=== PATIENT | male | born 1970 | race Caucasian/White ===

== ENCOUNTER → 2016-09-17 | Outpatient (CLI) | payer SELFPAY ==
[~2016-09-17] MED LIST: CIPRO250 MG PO; CYCLOBENZAPRINE10 MG PO; DUONEB 3 MG/3 ML3 M1 INH; HYDROCODONE BIT1 T11 PO; LEVOFLOXACIN500 MG PO; NAPROSYN500 MG PO; NEXIUM40 MG PO; NORCO 325 MG-51 TAB PO; NORCO 5-325 TA1 EACH PO; PREDNISONE1 MG PO; PREDNISONE10 MG PO; PREDNISONE20 M1 PO; ROBITUSSIN AC 110 ML PO; Tessalon Perle100 MG PO
--- NOTE | ~2016-09-17 | PF ---
[place], [place] PULMONARY FUNCTION TEST [id number] UNIT #: [id number] ROOM: DOCTOR: ELIZABETH GARZA MD,CRUZ BIRTHDATE: [birth year] DOS: 09/17/2016 COMPLETE PULMONARY FUNCTION TEST The testing was ordered by, Negin Wood, the nurse practitioner. HISTORY: The patient was recorded as 46 years old, outpatient, male, height of 67 inches, weight 209 pounds with BMI 32.7. Testing was done for assessment of bronchial asthma and ongoing symptoms of productive cough, dyspnea with exertion and frequent wheezing. There was no past tobacco use. SPIROMETRY: The FVC were recorded for the patient as 4.26 L as 91% predicted value normal. The FEV1 was recorded at 2.98 L at 80% predicted value normal as well. The ratio of FEV1/FVC were recorded as 70%. Flow volume loop suggestive of mild obstructive airway pattern. The patient's lung volumes, thoracic, no significant postbronchodilator changes were noted. The patient's lung volume, thoracic gas volume recorded 125%, residual volume 187%, total lung capacity of 114%. RV/TLC ratio of 163%. The lung volume suggestive of moderate air trapping most likely secondary to obstructive lung disease. The patient's lung diffusion recorded at 88% as normal. The patient's airway resistance and passive conductance were noted abnormal with partial improvement occurred postbronchodilator test. FINAL IMPRESSION: The test is suggestive of evidence of reverse obstructive lung disease consistent with bronchial asthma. CRUZ JOHNSON MD CM:PFREPORT:PULMONARY FUNCTION TEST [id number] CRUZ GARZA MD
== END ==
LOC: CP 12:39
DX: J45.909 Unspecified asthma, uncomplicated (principal)

== ENCOUNTER → 2017-05-07 | Outpatient (CLI) | payer OTHER | END | disposition home or self-care (01) | LOC: LAB 12:43 | DX: J18.9 Pneumonia, unspecified organism (principal); Z87.09 Personal history of other diseases of the respiratory system ==

== ENCOUNTER 2017-05-31 15:14 | Emergency (ER) | payer OTHER ==
[~2017-05-31] VITALS: Ht 170.1 cm; Wt 96.2 kg
[2017-05-31 16:15] LABS: BILIRUBIN NEGATIVE (NEGATIVE); BLOOD TRACE-INTACT (NEGATIVE); CLARITY SL CLOUDY (CLEAR); COLOR YELLOW (YELLOW); GLUCOSE NEGATIVE (NEGATIVE); KETONE NEGATIVE (NEGATIVE); LEUKO ESTERASE NEGATIVE (NEGATIVE); NITRITE NEGATIVE (NEGATIVE); SPECIFIC GRAVITY >= 1.030 (1.005-1.030); UROBILINOGEN 0.2 E.U./dl (0.2-1.0)
[2017-05-31 16:15] LABS: BASO % 0.2 % (0.0-1.0); EOS # 0.3 10*3/uL (0.0-0.4); EOS % 2.9 % (1.0-4.0); HEMATOCRIT 39.1 % (42.0-52.0); HEMOGLOBIN 13.2 g/dl (14.0-18.0); LYMPH # 1.5 10*3/uL (1.3-4.4); LYMPH % 13.6 % (27.0-41.0); MEAN CELL VOLUME 87.7 fl (80.0-94.0); MEAN CORPUSCULAR HGB 29.6 pg (27.0-31.0); MEAN CORPUSCULAR HGB CONC 33.8 g/dl (33.0-37.0); MEAN PLATELET VOLUME 10.4 fl (9.6-12.3); MONO # 0.9 10*3/uL (0.1-1.0); MONO % 7.8 % (3.0-9.0); NEUT # 8.4 10*3/uL (2.3-7.9); PLATELET COUNT AUTOMATED 221 10*3/uL (130-400); RED BLOOD COUNT 4.46 10*6/uL (4.50-5.90); RED CELL DISTRI WIDTH 13.5 % (0-14.5); WHITE BLOOD COUNT 11.2 10*3/uL (4.8-10.8)
[2017-05-31 16:24] LABS: MUCOUS 1+
[2017-05-31 16:25] LABS: BACTERIA 1+
[2017-05-31 16:29] LABS: ALBUMIN 3.3 gm/dl (3.1-4.5); ALKALINE PHOSPHATASE 56 U/L (45-117); BUN 9 mg/dl (7-24); CHLORIDE 106 mmol/L (98-107); CREATININE 0.99 mg/dL (0.70-1.30); LIPASE 93 U/L (73-393); POTASSIUM 4.1 mmol/L (3.5-5.1); SGOT/AST 20 IU/L (3-35); SGPT/ALT 30 U/L (12-78); SODIUM 138 mmol/L (136-145)
[2017-05-31] MEDS ORDERED: NORCO 5-325 TA1 EACH PO (19:30)
[2017-05-31] MEDS ORDERED: FLAGYL500 MG PO (19:30)
[2017-05-31] MEDS ORDERED: CIPRO500 MG PO (19:30)
== END 2017-05-31 22:05 | disposition home or self-care (01) ==
LOC: ED 15:14
PROVIDERS: Physician Assistant
DX: K52.9 Noninfective gastroenteritis and colitis, unspecified (principal); Z88.0 Allergy status to penicillin; Z79.899 Other long term (current) drug therapy

== ENCOUNTER 2017-11-08 11:09 | Emergency (ER) | payer OTHER ==
[~2017-11-08] VITALS: Ht 170.1 cm; Wt 96.2 kg
[~2017-11-08 11:09] MED LIST changes: +CIPRO500 MG PO; +FLAGYL500 MG PO
[2017-11-08] MEDS ORDERED: NAPROSYN500 MG PO (11:25)
== END 2017-11-08 13:10 | disposition home or self-care (01) ==
LOC: ED 11:09
DX: S60.041A Contusion of right ring finger without damage to nail, initial encounter (principal); R03.0 Elevated blood-pressure reading, without diagnosis of hypertension; F10.10 Alcohol abuse, uncomplicated; Z88.0 Allergy status to penicillin; Z79.899 Other long term (current) drug therapy; W22.8XXA Striking against or struck by other objects, initial encounter; Y93.89 Activity, other specified; Y92.89 Other specified places as the place of occurrence of the external cause; Y99.8 Other external cause status

== ENCOUNTER → 2017-12-11 | Outpatient (CLI) | payer OTHER | END | disposition home or self-care (01) | LOC: RAD 10:27 | DX: R05 Cough (principal); R06.02 Shortness of breath; R09.89 Other specified symptoms and signs involving the circulatory and respiratory systems; R07.89 Other chest pain ==

== ENCOUNTER → 2018-03-05 | Outpatient (CLI) | payer OTHER ==
[2018-03-05 08:56] LABS: IRON 121 ug/dL (65-175); TOTAL IRON BINDING CAPACITY 353 ug/dl (250-450)
[2018-03-05 08:59] LABS: HEMATOCRIT 41.2 % (42.0-52.0); HEMOGLOBIN 13.5 g/dl (14.0-18.0); MEAN CELL VOLUME 89.4 fl (80.0-94.0); MEAN CORPUSCULAR HGB 29.3 pg (27.0-31.0); MEAN CORPUSCULAR HGB CONC 32.8 g/dl (33.0-37.0); MEAN PLATELET VOLUME 10.9 fl (9.6-12.3); PLATELET COUNT AUTOMATED 221 10*3/uL (130-400); RED BLOOD COUNT 4.61 10*6/uL (4.50-5.90); RED CELL DISTRI WIDTH 13.2 % (0-14.5); WHITE BLOOD COUNT 3.8 10*3/uL (4.8-10.8)
[2018-03-05 09:28] LABS: BASOPHILS 2 % (0-1); PLATELET SUFFICIENCY NORMAL (NORMAL); TOTAL CELLS COUNTED 100 #CELLS
[2018-03-05 10:09] LABS: VITAMIN D, 25-HYDROXY 22.7 ng/mL (30-100)
== END | disposition home or self-care (01) ==
LOC: LAB 07:51
PROVIDERS: Nurse Practitioner Family
DX: E78.5 Hyperlipidemia, unspecified (principal); E66.9 Obesity, unspecified; F41.9 Anxiety disorder, unspecified; E83.51 Hypocalcemia; D50.8 Other iron deficiency anemias

== ENCOUNTER → 2019-03-04 | Outpatient (CLI) | payer OTHER ==
[~2019-03-04] MED LIST changes: +ZOFRAN4 MG PO
== END | disposition home or self-care (01) ==
LOC: CT 00:53
DX: K76.0 Fatty (change of) liver, not elsewhere classified (principal); K44.9 Diaphragmatic hernia without obstruction or gangrene; R11.0 Nausea; Z87.19 Personal history of other diseases of the digestive system

== ENCOUNTER → 2019-03-24 | Outpatient (CLI) | payer OTHER ==
[2019-03-24 12:33] LABS: HEMATOCRIT 44.3 % (42.0-52.0); HEMOGLOBIN 14.2 g/dl (14.0-18.0)
[2019-03-24 14:12] LABS: PTH INTACT 80.4 pg/mL (18.5-88.0)
== END | disposition home or self-care (01) ==
LOC: LAB 12:11
PROVIDERS: Nurse Practitioner Family
DX: D64.9 Anemia, unspecified (principal); E83.51 Hypocalcemia

== ENCOUNTER 2019-09-01 07:16 | Emergency (ER) | payer OTHER ==
[~2019-09-01] VITALS: Ht 170.1 cm; Wt 104.3 kg
[2019-09-01] MEDS ORDERED: DICYCLOMINE HCL10 MG PO (08:36)
[2019-09-01] MEDS ORDERED: ZOFRAN4 MG PO (08:36)
== END 2019-09-01 08:55 | disposition home or self-care (01) ==
LOC: ED 07:16
DX: K52.9 Noninfective gastroenteritis and colitis, unspecified (principal); J45.909 Unspecified asthma, uncomplicated; Z88.0 Allergy status to penicillin; Z79.899 Other long term (current) drug therapy

== ENCOUNTER → 2021-07-06 | Outpatient (CLI) | payer OTHER ==
[~2021-07-06] MED LIST changes: +DICYCLOMINE HCL10 MG PO
== END | disposition home or self-care (01) ==
LOC: RAD 12:59
PROVIDERS: ATTEND Nurse Practitioner Family
DX: R06.02 Shortness of breath (principal); R06.2 Wheezing; R05.9 Cough, unspecified; R50.9 Fever, unspecified; R19.7 Diarrhea, unspecified

== ENCOUNTER → 2022-05-25 | Outpatient (CLI) | payer OTHER ==
[2022-05-25 08:38] LABS: BASO % 0.8 % (0.0-1.0); EOS # 0.1 10*3/uL (0.0-0.4); EOS % 1.5 % (1.0-4.0); HEMATOCRIT 42.7 % (42.0-52.0); MEAN CELL VOLUME 91.6 fl (80.0-94.0); MEAN CORPUSCULAR HGB 30.3 pg (27.0-31.0); MEAN PLATELET VOLUME 10.1 fl (9.6-12.3); MONO # 0.6 10*3/uL (0.1-1.0); MONO % 10.5 % (3.0-9.0); NEUT # 2.6 10*3/uL (2.3-7.9); NEUT % 48.6 % (47.0-73.0); PLATELET COUNT AUTOMATED 245 10*3/uL (130-400); RED BLOOD COUNT 4.66 10*6/uL (4.50-5.90); RED CELL DISTRI WIDTH 13.6 % (0-14.5); WHITE BLOOD COUNT 5.2 10*3/uL (4.8-10.8)
[2022-05-25 09:07] LABS: BUN 11 mg/dl (7-24); CHLORIDE 107 mmol/L (98-107); SODIUM 139 mmol/L (136-145)
[2022-05-25 09:10] LABS: ALKALINE PHOSPHATASE 51 U/L (45-117); CHOLESTEROL 152 mg/dL (<200); CREATININE 0.88 mg/dL (0.70-1.30); LDL CHOLESTEROL 49 mg/dL (9-159); SGOT/AST 22 IU/L (3-35); SGPT/ALT 36 U/L (12-78); TOTAL PROTEIN 7.2 gm/dL (6.4-8.2); TRIGLYCERIDES 117 mg/dl (<150)
== END | disposition home or self-care (01) ==
LOC: LAB 07:48
PROVIDERS: ATTEND Nurse Practitioner Family
DX: D50.8 Other iron deficiency anemias (principal); E78.5 Hyperlipidemia, unspecified; E66.9 Obesity, unspecified

== ENCOUNTER → 2023-01-16 | Outpatient (CLI) | payer OTHER | END | disposition home or self-care (01) | LOC: RAD 11:49 | PROVIDERS: ATTEND Chiropractor | DX: M47.812 Spondylosis without myelopathy or radiculopathy, cervical region (principal); M47.817 Spondylosis without myelopathy or radiculopathy, lumbosacral region; M47.816 Spondylosis without myelopathy or radiculopathy, lumbar region; M47.814 Spondylosis without myelopathy or radiculopathy, thoracic region; M48.02 Spinal stenosis, cervical region; M54.2 Cervicalgia; M54.50 Low back pain, unspecified ==

== ENCOUNTER → 2023-09-04 | Outpatient (CLI) | payer OTHER ==
[2023-09-04 07:47] LABS: BASO % 0.3 % (0.0-1.0); EOS # 0.1 10*3/uL (0.0-0.4); EOS % 0.9 % (1.0-4.0); HEMATOCRIT 46.1 % (42.0-52.0); LYMPH # 2.3 10*3/uL (1.3-4.4); MEAN CELL VOLUME 89.5 fl (80.0-94.0); MEAN CORPUSCULAR HGB 29.1 pg (27.0-31.0); MEAN CORPUSCULAR HGB CONC 32.5 g/dl (33.0-37.0); MEAN PLATELET VOLUME 9.5 fl (9.6-12.3); MONO # 0.5 10*3/uL (0.1-1.0); MONO % 8.9 % (3.0-9.0); NEUT % 50.2 % (47.0-73.0); PLATELET COUNT AUTOMATED 257 10*3/uL (130-400); RED BLOOD COUNT 5.15 10*6/uL (4.50-5.90); RED CELL DISTRI WIDTH 12.5 % (0-14.5); WHITE BLOOD COUNT 5.9 10*3/uL (4.8-10.8)
[2023-09-04 09:08] LABS: ALKALINE PHOSPHATASE 51 U/L (46-116); BUN 11 mg/dl (9-23); CHLORIDE 103 mmol/L (98-107); CHOLESTEROL 236 mg/dL (<200); LDL CHOLESTEROL 94 mg/dL (9-159); POTASSIUM 3.8 mmol/L (3.4-5.1); SGPT/ALT 29 U/L (5-49); TOTAL PROTEIN 6.9 gm/dL (6.0-8.0); TRIGLYCERIDES 225 mg/dl (<150)
== END | disposition home or self-care (01) ==
LOC: LAB 07:33
PROVIDERS: ATTEND Nurse Practitioner Family
DX: E78.5 Hyperlipidemia, unspecified (principal); E55.9 Vitamin D deficiency, unspecified; E66.01 Morbid (severe) obesity due to excess calories; F41.9 Anxiety disorder, unspecified

== ENCOUNTER 2023-09-27 09:38 | Emergency (ER) | payer OTHER ==
[~2023-09-27] VITALS: Ht 170.1 cm; Wt 98.9 kg
[2023-09-27] MEDS ORDERED: MELOXICAM15 MG PO (11:13)
[2023-09-27] MEDS ORDERED: VALIUM5 MG PO (11:13)
== END 2023-09-27 11:38 | disposition home or self-care (01) ==
LOC: ED 09:38
DX: M43.6 Torticollis (principal); M54.2 Cervicalgia; J45.909 Unspecified asthma, uncomplicated; Z88.0 Allergy status to penicillin; Z98.890 Other specified postprocedural states

== ENCOUNTER 2024-03-17 08:42 | Emergency (ER) | payer OTHER ==
[~2024-03-17 08:42] MED LIST changes: +MELOXICAM15 MG PO; +VALIUM5 MG PO
[2024-03-17] MEDS ORDERED: Cyclobenzaprine Hydrochlorid 10 MG TAB PO ONE (08:55)
[2024-03-17] MEDS ORDERED: Acetaminophen/Oxycodone 5 MG/325 MG TABLET PO ONE (08:55)
[2024-03-17] MEDS ORDERED: DIAZEPAM 5 MG TAB PO ONE (09:55)
[2024-03-17] MEDS ORDERED: DIAZEPAM5 MG PO (10:45)
[2024-03-17] MEDS ORDERED: CYCLOBENZAPRINE5 M3 PO (10:45)
== END 2024-03-17 10:47 | disposition home or self-care (01) ==
LOC: ED 08:42
DX: M43.6 Torticollis (principal); M54.2 Cervicalgia; M79.602 Pain in left arm; J45.909 Unspecified asthma, uncomplicated; Z88.0 Allergy status to penicillin; Z88.8 Allergy status to other drugs, medicaments and biological substances; Z98.890 Other specified postprocedural states

== ENCOUNTER → 2024-03-27 | Outpatient (CLI) | payer OTHER ==
[~2024-03-27] MED LIST changes: +CYCLOBENZAPRINE5 M3 PO; +DIAZEPAM5 MG PO
[2024-03-27 08:23] LABS: BASO # 0.1 10*3/uL (0.0-0.1); BASO % 1.2 % (0.0-1.0); EOS # 0.2 10*3/uL (0.0-0.4); EOS % 3.8 % (1.0-4.0); HEMATOCRIT 41.5 % (42.0-52.0); LYMPH # 1.6 10*3/uL (1.3-4.4); LYMPH % 39.1 % (27.0-41.0); MEAN CELL VOLUME 90.2 fl (80.0-94.0); MEAN CORPUSCULAR HGB 30.2 pg (27.0-31.0); MEAN CORPUSCULAR HGB CONC 33.5 g/dl (33.0-37.0); MEAN PLATELET VOLUME 10.5 fl (9.6-12.3); MONO # 0.5 10*3/uL (0.1-1.0); NEUT # 1.9 10*3/uL (2.3-7.9); NEUT % 44.4 % (47.0-73.0); PLATELET COUNT AUTOMATED 224 10*3/uL (130-400); WHITE BLOOD COUNT 4.2 10*3/uL (4.8-10.8)
[2024-03-27 08:53] LABS: ALKALINE PHOSPHATASE 40 U/L (46-116); BUN 6 mg/dl (9-23); CHLORIDE 103 mmol/L (98-107); POTASSIUM 4.1 mmol/L (3.4-5.1); SGPT/ALT 27 U/L (5-49)
== END | disposition home or self-care (01) ==
LOC: LAB 07:42
PROVIDERS: ATTEND Podiatrist Foot & Ankle Surgery
DX: Z01.818 Encounter for other preprocedural examination (principal)

== ENCOUNTER → 2025-02-25 | Outpatient (CLI) | payer OTHER | END | disposition home or self-care (01) | LOC: MRI 08:44 → CT 11:00 | PROVIDERS: ATTEND Podiatrist Foot & Ankle Surgery | DX: S93.492A Sprain of other ligament of left ankle, initial encounter (principal); M25.572 Pain in left ankle and joints of left foot; M77.32 Calcaneal spur, left foot; X58.XXXA Exposure to other specified factors, initial encounter; Y93.89 Activity, other specified; Y92.89 Other specified places as the place of occurrence of the external cause; Y99.8 Other external cause status ==